=== PATIENT | male | born 1945 | race Caucasian/White ===

== ENCOUNTER → 2018-02-03 | Outpatient (CLI) | payer MEDICARE, OTHER ==
[2014-03-13 10:08] VITALS: BMI 35.3
[~2018-02-03] MED LIST: ALBU2.5V36 NEB; ALBU8.5H IH; CETI10CA8 PO; DOCU-202 PO; DRON400T4 PO; IPRA3AMP10 NEB; IPRA4AER IH; LABE100T2 PO; LISI-362 PO; LOSA100T67 PO; PER PO; WARF6TAB13 PO; WARF7.5T13 PO
[2018-02-03 11:29] LABS: INR 2.64
== END ==
LOC: LAB 11:09
PROVIDERS: ATTEND Family Medicine
DX: I48.91 Unspecified atrial fibrillation (principal)
CPT/HCPCS: 36415; 85610